=== PATIENT | female | born 1945 | race Caucasian/White ===

== ENCOUNTER 2019-12-22 06:19 | Day surgery (SDC) | payer MEDICARE, BC ==
[~2019-12-22 06:19] MED LIST: Dextrose 5%-0.45% NaCl 1,000 ML IV SCH; Midazolam 1 MG/ML 2 ML SDV ONE; Sodium Chloride 0.9% 10 ML Syringe FLUSH PRN; fentaNYL 100 MCG/2 ML SDV ONE
[2019-12-22] MEDS ORDERED: Midazolam 1 MG/ML 2 ML SDV IV ONE ×5 (06:20→07:44)
[2019-12-22] MEDS ORDERED: fentaNYL 100 MCG/2 ML SDV IV ONE ×3 (06:20→07:35)
--- NOTE | 2019-12-22 10:00 | OR ---
DATE: 12/22/2019 PROCEDURE: Total colonoscopy and cold snare polypectomy. INSTRUMENT USED: PCF-H190DL Olympus video colonoscope. PREMEDICATIONS: Fentanyl 100 mcg intravenous, Versed 3 mg intravenous. Nasal O2 cannula. The procedure was done under pulse oximetry, BP recording, and kitchen mechanic. INDICATION: The patient with rectal bleeding. Colonoscopic examination is done for detection of any polypoid lesions and removal, endoscopic hemostasis therapy if needed. DESCRIPTION OF PROCEDURE: Initial rectal exam showed external hemorrhoidal tags. Rigid anoscopy showed small internal hemorrhoids without bleeding from them. The colonoscope was passed with ease. Numerous scattered diverticula were noted in the distal left colon along with deformity. There was some amount of fecal material that had to be aspirated clear. The scope was passed with ease up to the ileocecal area. Photographs were taken of the normal-appearing cecum identified by landmarks of appendiceal orifice and double-bulged ileocecal folds. No bleeding was noted from any of the visualized areas at the commencement of the examination. The bowel preparation was found to be adequate. [place] scale 2 in all the regions, total score 6. No stricture. No vascular ectasia. No large isolated ulcerations seen. No evidence of diffuse inflammatory bowel disease in the form of friability, contact bleeding, or ulcerations. Probing the proximal sides of folds and flexures using adequate distention and clearing up the stool material, withdrawal of the scope was made. In the distal descending colon diminutive benign-appearing colonic polyp was noted, photograph was taken, cold snare polypectomy was done, the tissue was retrieved and sent for histopathology. No bleeding was noted from any of the visualized areas at the completion of the examination. IMPRESSION: 1. External and internal hemorrhoids. 2. Diverticulosis. 3. Diminutive descending colon polyp. The patient tolerated the procedure well. [facility] /[id number]
[2019-12-22 14:16] VITALS: BP 136/71
[2019-12-22 14:17] VITALS: PULSE 68
== END 2019-12-22 10:25 | disposition home or self-care (01) ==
LOC: DL.ENDO 06:19
PROVIDERS: ATTEND Internal Medicine Gastroenterology
DX: D12.4 Benign neoplasm of descending colon (principal); K64.4 Residual hemorrhoidal skin tags; K64.8 Other hemorrhoids; K57.31 Diverticulosis of large intestine without perforation or abscess with bleeding; E66.09 Other obesity due to excess calories; I10 Essential (primary) hypertension; E78.5 Hyperlipidemia, unspecified; E11.9 Type 2 diabetes mellitus without complications; G47.33 Obstructive sleep apnea (adult) (pediatric); Z88.5 Allergy status to narcotic agent; Z88.8 Allergy status to other drugs, medicaments and biological substances; Z86.018 Personal history of other benign neoplasm; Z90.49 Acquired absence of other specified parts of digestive tract; Z68.42 Body mass index [BMI] 45.0-49.9, adult
CPT/HCPCS: 45385; J2250; J3010; J7042; 88305

== ENCOUNTER 2020-07-01 19:52 | Emergency (ER) | payer MEDICARE, BC ==
[2020-07-01 20:10] VITALS: BP 118/65; PULSE 95
[2020-07-01 21:21] LABS: ANION GAP 15.5 mEq/L (7-13)
--- NOTE | 2020-07-01 22:01 | EDM.PDOC ---
ED HPI GENERAL MEDICAL PROBLEM - General Chief Complaint: Respiratory Problem Stated Complaint: COVID+, SHORTNESS OF BREATH Time Seen by Provider: 07/01/20 20:30 Source of Information: Reports: Patient History Limitations: Reports: No Limitations - History of Present Illness INITIAL COMMENTS - FREE TEXT/NARRATIVE: ED ambulatory with c/o SOB Known COVID, slight cough low grade fever earlier in week, Tonight slight SOB with activity, felt like had to take extra breath, Now not feeling bad, admits some anxiety just knowing have COVID, Son and Spouse concerned. No chest pain, Some diarrhea, No vomiting. Still has taste and smell. Remote smoking hx. No COPD - Related Data Allergies Allergy/AdvReac Type Severity Reaction Status Date / Time codeine Allergy Headache Verified 12/21/15 12:12 lisinopril Allergy Cough Verified 12/21/15 12:12 promethazine HCl Allergy Fever Verified 12/21/15 12:12 [From Phenergan] Home Meds: Home Meds Aspirin [Halfprin] 81 mg PO DAILY 12/20/15 [History] Calcium Carbonate [Calcium] 1 tab PO DAILY 12/20/15 [History] FLUoxetine [PROzac] 20 mg PO DAILY 12/20/15 [History] Multivitamin-Min/Iron/FA/Vit K [Multi-Day Plus Minerals Tablet] 1 tab PO DAILY 12/20/15 [History] Omeprazole [Prilosec] 20 mg PO DAILY 12/20/15 [History] Zolpidem [Ambien] 10 mg PO BEDTIME PRN 12/20/15 [History] atenoloL [Atenolol] 50 mg PO BID 12/20/15 [History] atorvaSTATin [Lipitor] 40 mg PO DAILY 12/20/15 [History] metFORMIN HCl [Metformin HCl] 1,000 mg PO BID 12/20/15 [History] Acetaminophen/Diphenhydramine [Tylenol Pm Ex-Strength Caplet] 1 tab PO BEDTIME PRN 12/21/19 [History] Canagliflozin [Invokana] 300 mg PO DAILY 12/21/19 [History] Cholecalciferol (Vitamin D3) [Vitamin D3] 400 units PO DAILY 12/21/19 [History] Fish Oil/[place]-3 Fatty Acids [Fish Oil 1,000 MG] 1,000 mg PO DAILY 12/21/19 [History] Liraglutide [Victoza] 18 mg INJECT DAILY 12/21/19 [History] Losartan [Cozaar] 50 mg PO BID 12/21/19 [History] Pioglitazone [Actos] 30 mg PO DAILY 12/21/19 [History] hydroCHLOROthiazide [Hydrochlorothiazide] 25 mg PO DAILY 12/21/19 [History] Past Medical History HEENT History: Reports: Impaired Vision Cardiovascular History: Reports: High Cholesterol, Hypertension Respiratory History: Reports: Sleep Apnea, Other (See Below) Other Respiratory History: CHRONIC COUGH Gastrointestinal History: Reports: Diverticulosis, GERD Genitourinary History: LAST MODEL MAKER History: Reports: None Musculoskeletal History: Reports: Arthritis Neurological History: Reports: None Psychiatric History: Reports: Depression Endocrine/Metabolic History: Reports: Diabetes, Type II, Obesity/BMI 30+ Immunologic History: Reports: None Oncologic (Cancer) History: Reports: None Dermatologic History: Reports: None - Infectious Disease History Infectious Disease History: Reports: Chicken Pox, Measles, Mumps, Novel Coronavirus, Rubella - Past Surgical History HEENT Surgical History: Reports: Adenoidectomy, Tonsillectomy Cardiovascular Surgical History: Reports: None GI Surgical History: Reports: Appendectomy, Bariatric Procedure, Cholecystectomy, Colonoscopy, Other (See Below) Other GI Surgeries/Procedures: LAP BAND PLACEMENT, FAILURE, REMOVAL Female Surgical History: Reports: Breast Reduction, Hysterectomy Social & Family History - Family History Family Medical History: No Pertinent Family History - Tobacco Use Tobacco Use Status *Q: Never Tobacco User Second Hand Smoke Exposure: No - Recreational Drug Use Recreational Drug Use: No ED ROS GENERAL - Review of Systems Review Of Systems: Comprehensive ROS is negative, except as noted in HPI. ED EXAM, GENERAL - Physical Exam Exam: See Below Exam Limited By: No Limitations General Appearance: Alert, No Apparent Distress Eye Exam: Bilateral Eye: EOMI Ears: Normal External Exam, Hearing Grossly Normal, Normal TMs Nose: Normal Inspection, Normal Mucosa Throat/Mouth: Normal Inspection Head: Atraumatic, Normocephalic Neck: Normal Inspection, Full Range of Motion Respiratory/Chest: No Respiratory Distress, Lungs Clear, Normal Breath Sounds Cardiovascular: Normal Peripheral Pulses, Regular Rate, Rhythm, No Edema, Tachycardia GI/Abdominal: Normal Bowel Sounds Back Exam: Full Range of Motion Extremities: Normal Inspection Neurological: Alert, Oriented, CN II-XII Intact, Normal Cognition Psychiatric: Normal Affect, Normal Mood Skin Exam: Warm, Dry, Intact, Normal Color Course - Vital Signs Last Recorded V/S: Last Vital Signs Temp 97.9 F 07/01/20 20:02 Pulse 95 07/01/20 20:02 Resp 18 07/01/20 20:02 BP 118/65 07/01/20 20:10 Pulse Ox 95 07/01/20 20:02 - Orders/Labs/Meds Labs: Laboratory Tests 07/01/20 07/01/20 07/01/20 Range/Units 20:50 20:50 20:50 WBC 5.1 (5.0-10.0) 10^3/uL RBC 4.97 (4.2-5.4) 10^6/uL Hgb 14.8 (12.0-16.0) g/dL Hct 44.6 (37.0-47.0) % MCV 89.7 (80-100) fL MCH 29.8 (27.0-34.0) pg MCHC 33.2 (33.0-35.0) g/dL Plt Count 154 (150-450) 10^3/uL Neut % (Auto) 50.5 (42.2-75.2) % Lymph % (Auto) 32.2 (20.5-50.1) % [place] % (Auto) 16.9 H (2-8) % Eos % (Auto) 0.2 L (1.0-3.0) % Baso % (Auto) 0.2 (0.0-1.0) % D-Dimer, Quantitative 321 (0-400) ng/mL Sodium 136 (136-145) mmol/L Potassium 4.5 (3.5-5.1) mmol/L Chloride 101 (98-107) mmol/L Carbon Dioxide 24 (21-32) mmol/L Anion Gap 15.5 H (7-13) mEq/L BUN 27 H (7-18) mg/dL Creatinine 1.23 H (0.55-1.02) mg/dL Est Cr Clr Drug Dosing 30.28 mL/min Estimated GFR (MDRD) 43 BUN/Creatinine Ratio 22.0 (No establ ref range) Glucose 136 H (74-99) mg/dL Lactic Acid (0.4-2.0) mmol/L Calcium 8.9 (8.5-10.1) mg/dL Total Bilirubin 0.4 (0.2-1.0) mg/dL AST 23 (15-37) U/L ALT 67 H (14-59) U/L Alkaline Phosphatase 72 (46-116) U/L Total Protein 7.3 (6.4-8.2) g/dL Albumin 3.1 L (3.4-5.0) g/dL Globulin 4.2 Albumin/Globulin Ratio 0.74 11/13/20 Range/Units 20:50 WBC (5.0-10.0) 10^3/uL RBC (4.2-5.4) 10^6/uL Hgb (12.0-16.0) g/dL Hct (37.0-47.0) % MCV (80-100) fL MCH (27.0-34.0) pg MCHC (33.0-35.0) g/dL Plt Count (150-450) 10^3/uL Neut % (Auto) (42.2-75.2) % Lymph % (Auto) (20.5-50.1) % [place] % (Auto) (2-8) % Eos % (Auto) (1.0-3.0) % Baso % (Auto) (0.0-1.0) % D-Dimer, Quantitative (0-400) ng/mL Sodium (136-145) mmol/L Potassium (3.5-5.1) mmol/L Chloride (98-107) mmol/L Carbon Dioxide (21-32) mmol/L Anion Gap (7-13) mEq/L BUN (7-18) mg/dL Creatinine (0.55-1.02) mg/dL Est Cr Clr Drug Dosing mL/min Estimated GFR (MDRD) BUN/Creatinine Ratio (No establ ref range) Glucose (74-99) mg/dL Lactic Acid 1.5 (0.4-2.0) mmol/L Calcium (8.5-10.1) mg/dL Total Bilirubin (0.2-1.0) mg/dL AST (15-37) U/L ALT (14-59) U/L Alkaline Phosphatase (46-116) U/L Total Protein (6.4-8.2) g/dL Albumin (3.4-5.0) g/dL Globulin Albumin/Globulin Ratio - Re-Assessments/Exams Free Text/Narrative Re-Assessment/Exam: 07/01/20 21:59 Initial oxygenation upper 80's placed on 2 liters mid 90's. Tolerated titration back to room air, maintaining 91-93% with no c/o. Departure - Departure Time of Disposition: 22:01 Disposition: Home, Self-Care 01 Condition: Good Clinical Impression: COVID-19 Dyspnea Qualifiers: Dyspnea type: shortness of breath Qualified Code(s): R06.02 - Shortness of breath; R06.00 - Dyspnea, unspecified; R06.01 - Orthopnea - Discharge Information *PRESCRIPTION DRUG MONITORING PROGRAM REVIEWED*: No *COPY OF PRESCRIPTION DRUG MONITORING REPORT IN PATIENT [facility]: No Instructions: Shortness of Breath, Adult, [id number], COVID-19: How to Protect Yourself and Others - [facility] Referrals: Ghislaine Colbert NP [Primary Care Provider] - Forms: ED Department Discharge Additional Instructions: Rest fluids tylenol for discomfort humidification diet as tolerated quarantine follow up if symptoms worsen Sepsis Event Note (ED) - Evaluation Sepsis Screening Result: No Definite Risk - Focused Exam Vital Signs: Vital Signs Temp Pulse Resp BP Pulse Ox 07/01/20 20:10 118/65 07/01/20 20:02 97.9 F 95 18 75/61 L 95
--- NOTE | 2020-07-01 22:07 | CR ---
PROCEDURE INFORMATION: Exam: XR Chest, 1 View Exam date and time: 07/01/2020 10:02 PM Age: 74 years old Clinical indication: Shortness of breath; Additional info: SOB covid + TECHNIQUE: Imaging protocol: XR of the chest Views: 1 view. COMPARISON: No relevant prior studies available. FINDINGS: Lungs: Unremarkable. No consolidation. Pleural space: Unremarkable. No pleural effusion. No pneumothorax. Heart/Mediastinum: Unremarkable. No cardiomegaly. Bones/joints: Unremarkable. IMPRESSION: No acute findings.
== END 2020-07-01 22:45 | disposition home or self-care (01) ==
LOC: DL.ED 19:52
DX: U07.1 COVID-19 (principal); E78.00 Pure hypercholesterolemia, unspecified; I10 Essential (primary) hypertension; K21.9 Gastro-esophageal reflux disease without esophagitis; M19.90 Unspecified osteoarthritis, unspecified site; F32.9 Major depressive disorder, single episode, unspecified; E11.9 Type 2 diabetes mellitus without complications; Z79.84 Long term (current) use of oral hypoglycemic drugs; E66.9 Obesity, unspecified; Z68.38 Body mass index [BMI] 38.0-38.9, adult; Z88.8 Allergy status to other drugs, medicaments and biological substances; Z79.82 Long term (current) use of aspirin; Z79.899 Other long term (current) drug therapy; Z88.5 Allergy status to narcotic agent
CPT/HCPCS: 36415; 71045; 80053; 83605; 85025; 85379; 99283; 99285-25

== ENCOUNTER 2023-12-25 08:04 | Day surgery (SDC) | payer MEDICARE, BC ==
[~2023-12-25 08:04] MED LIST changes: +Acetaminophen 325 MG Tab PO PRN; +Acetaminophen/Codeine 300-30 MG Tab PO PRN; -Dextrose 5%-0.45% NaCl 1,000 ML IV SCH; -Midazolam 1 MG/ML 2 ML SDV ONE; +Ondansetron 4 MG/2 ML SDV IVPUSH PRN; -fentaNYL 100 MCG/2 ML SDV ONE
[2023-12-25] MEDS ORDERED: Sodium Chloride 0.9% 10 ML Syringe IV ONE (08:05)
[2023-12-25] MEDS ORDERED: Dexamethasone 4 MG/ML SDV IV ONE (08:05)
[2023-12-25] MEDS ORDERED: Midazolam 1 MG/ML 2 ML SDV IV ONE (08:05)
[2023-12-25] MEDS: Proparacaine 0.5% Ophth Soln 15 ML Bottle EYERT ONE (08:46)
[2023-12-25] MEDS: Moxifloxacin 0.5% Ophth Soln 3 ML Bottle EYERT ONE (08:47)
[2023-12-25] MEDS: Tropicamide 1% Ophth Soln 15 ML Bottle EYERT ONE (08:47)
[2023-12-25] MEDS: Povidone-Iodine 5% Sterile Ophth Soln 30 ML Bottle EYERT ONE (08:48)
[2023-12-25] MEDS: Phenylephrine 10% Ophth Soln 5 ML Bot EYERT ONE (08:49)
[2023-12-25] MEDS: Timolol Maleate 0.5% Ophth Soln 5 ML Bottle EYERT ONE (08:50)
[2023-12-25] MEDS: Cataract Ophth Solution EYERT ONE (08:50)
[2023-12-25] MEDS: Lidocaine 1% 30 ML SDV ONE (10:01)
[2023-12-25] MEDS: Apraclonidine 0.5% Ophth Soln 5 ML Bot EYELF ONE (10:02)
[2023-12-25] MEDS: Diclofenac Sodium 0.1% Ophth Soln 5 ML Bottle EYELF ONE (10:02)
[2023-12-25] MEDS: Proparacaine 0.5% Ophth Soln 15 ML Bottle EYELF ONE (10:02)
[2023-12-25] MEDS: Povidone-Iodine 5% Sterile Ophth Soln 30 ML Bottle EYELF ONE (10:02)
[2023-12-25] MEDS: Vancomycin 500 MG SDV EYELF ONE (10:02)
[2023-12-25] MEDS: Dexamethasone/Neomycin/Polymyxin B Ophth Oint 3.5 GM Tube EYELF ONE (10:02)
[2023-12-25 11:12] VITALS: BP 146/68; PULSE 84
== END 2023-12-25 10:45 | disposition home or self-care (01) ==
LOC: DL.SDS 08:04
PROVIDERS: ATTEND Ophthalmology
DX: E11.36 Type 2 diabetes mellitus with diabetic cataract (principal); H25.812 Combined forms of age-related cataract, left eye; I10 Essential (primary) hypertension; E78.5 Hyperlipidemia, unspecified; K21.9 Gastro-esophageal reflux disease without esophagitis; Z87.891 Personal history of nicotine dependence; Z79.85 Long-term (current) use of injectable non-insulin antidiabetic drugs; Z79.899 Other long term (current) drug therapy
CPT/HCPCS: A9270-GY; J1100; J2250; J3370; J3490

== ENCOUNTER 2024-01-08 06:32 | Day surgery (SDC) | payer MEDICARE, BC ==
[~2024-01-08 06:32] MED LIST changes: -Sodium Chloride 0.9% 10 ML Syringe FLUSH PRN
[2024-01-08] MEDS ORDERED: Dexamethasone 4 MG/ML SDV IV ONE (06:33)
[2024-01-08] MEDS ORDERED: Midazolam 1 MG/ML 2 ML SDV IV ONE (06:33)
[2024-01-08] MEDS ORDERED: Sodium Chloride 0.9% 10 ML Syringe IV ONE (06:33)
[2024-01-08] MEDS: Phenylephrine 10% Ophth Soln 5 ML Bot EYERT ONE (06:55)
[2024-01-08] MEDS: Timolol Maleate 0.5% Ophth Soln 5 ML Bottle EYERT ONE (06:55)
[2024-01-08] MEDS: Tropicamide 1% Ophth Soln 15 ML Bottle EYERT ONE (06:56)
[2024-01-08] MEDS: Moxifloxacin 0.5% Ophth Soln 3 ML Bottle EYERT ONE (06:56)
[2024-01-08] MEDS: Povidone-Iodine 5% Sterile Ophth Soln 30 ML Bottle EYERT ONE ×2 (06:57→08:06)
[2024-01-08] MEDS: Proparacaine 0.5% Ophth Soln 15 ML Bottle EYERT ONE ×2 (06:57→08:06)
[2024-01-08] MEDS: Cataract Ophth Solution EYERT ONE (06:57)
[2024-01-08] MEDS: Sodium Chloride 0.9% 10 ML Syringe FLUSH PRN (07:14)
[2024-01-08] MEDS: Diclofenac Sodium 0.1% Ophth Soln 5 ML Bottle EYERT ONE (08:06)
[2024-01-08] MEDS: Apraclonidine 0.5% Ophth Soln 5 ML Bot EYERT ONE (08:06)
[2024-01-08] MEDS: Lidocaine 1% 30 ML SDV ONE (08:06)
[2024-01-08] MEDS: Dexamethasone/Neomycin/Polymyxin B Ophth Oint 3.5 GM Tube EYERT ONE (08:07)
[2024-01-08] MEDS: Vancomycin 500 MG SDV EYERT ONE (08:07)
[2024-01-08 08:34] VITALS: BP 112/68; PULSE 84
== END 2024-01-08 08:50 | disposition home or self-care (01) ==
LOC: DL.SDS 06:32
PROVIDERS: ATTEND Ophthalmology
DX: E11.36 Type 2 diabetes mellitus with diabetic cataract (principal); H25.811 Combined forms of age-related cataract, right eye; I10 Essential (primary) hypertension; K21.9 Gastro-esophageal reflux disease without esophagitis; G47.33 Obstructive sleep apnea (adult) (pediatric); E78.5 Hyperlipidemia, unspecified; E66.09 Other obesity due to excess calories; Z68.41 Body mass index [BMI] 40.0-44.9, adult; Z87.891 Personal history of nicotine dependence; Z79.84 Long term (current) use of oral hypoglycemic drugs; Z79.899 Other long term (current) drug therapy; Z88.5 Allergy status to narcotic agent
CPT/HCPCS: 00142; 66984; 99100; A9270; J1100; J2250; J3370; V2632; J3490